=== PATIENT | female | born 1940 | race Caucasian/White ===

== ENCOUNTER 2021-10-30 14:45 | Inpatient (IN) ==
[2021-10-30] MEDS ORDERED: Acetaminophen 325 MG TABLET PO PRN (18:20)
[2021-10-30] MEDS ORDERED: D5% in Water 1,000 ML IVC PRN (18:31)
[2021-10-30] MEDS ORDERED: *HR* Dextrose 50 % in Water (Syg) 50 ML SYRINGE IVP PRN (18:31)
[2021-10-30] MEDS ORDERED: Dextrose 4 GM Chewable Tablets PO PRN ×2 (18:31)
[2021-10-30] MEDS ORDERED: *HR* LORazepam 0.5 MG TABLET PO PRN (18:32)
[2021-10-30] MEDS ORDERED: MethylPREDNISolone 40 MG/ML VIAL IVP SCH ×2 (19:00→21:00)
[2021-10-30] MEDS: QUEtiapine Fumarate 25 MG TABLET PO SCH (20:32)
[2021-10-30] MEDS: Insulin LISPRO 300 UNITS/3 ML VIAL SUBQ SCH (20:33)
[2021-10-30] MEDS: Gabapentin 100 MG CAPSULE PO SCH (20:33)
[2021-10-30] MEDS: Budesonide/Formoterol 160/4.5 1 PUFF INH IH SCH (21:47)
[2021-10-30] MEDS: Famotidine 20 MG TABLET PO SCH (21:51)
[2021-10-30 23:09] LABS: Bilirubin,Urine Negative (Negative); Blood,Urine Negative (Negative); Clarity,Urine Slightly Cloudy (Clear); Glucose,Urine (UA) 100 mg/dL (Normal); Ketones,Urine Negative (Negative); Leukocyte Esterase,Urine Negative (Negative); Nitrite,Urine Negative (Negative); Protein,Urine 30 mg/dL (Neg-Trace); Specific Gravity,Urine 1.015 (1.010-1.025); Urobilinogen,Urine Normal (Normal)
[2021-10-30 23:13] LABS: Color,Urine Yellow (Yellow)
[2021-10-30 23:14] LABS: Amorphous Sediment,Urine Few per hpf (None-Few); Squamous Epithelial Cell,Urine Few per hpf (None-Few)
[2021-10-30] MEDS ORDERED: Ipratropium/Albuterol Neb 3 ML IH ONE (23:40)
[2021-10-31 00:14] LABS: ABG Base Excess 6 mEq/L (-2 to 3); ABG HCO3 32 mEq/L (21-27); ABG Oxygen Saturation 99 % (95-98); ABG PCO2 54 mmHg (35-45); ABG PH 7.38 pH Units (7.32-7.45); ABG PO2 156 mmHg (85-104); ABG TCO2 34 mEq/L (20-26)
[2021-10-31] MEDS ORDERED: methylPREDNISolone 125 MG/2 ML VIAL IVP ONE (00:14)
[2021-10-31] MEDS: Ipratropium/Albuterol Neb 3 ML IH SCH ×7 (00:20→23:54)
[2021-10-31 03:00] LABS: Adenovirus Not Detected (Not Detect); Bordetella Pertussis Not Detected (Not Detect); Coronavirus 229E Not Detected (Not Detect); Coronavirus HKU1 Not Detected (Not Detect); Coronavirus NL63 Not Detected (Not Detect); Coronavirus OC43 Not Detected (Not Detect); Human Metapneumovirus DETECTED (Not Detect); Human Rhinovirus/Enterovirus Not Detected (Not Detect); Influenza A Subtype 2009 H1 Not Detected (Not Detect); Influenza B Not Detected (Not Detect); Parainfluenza Virus 1 Not Detected (Not Detect); Parainfluenza Virus 2 Not Detected (Not Detect); Parainfluenza Virus 3 Not Detected (Not Detect); Parainfluenza Virus 4 Not Detected (Not Detect); Respiratory Syncytial Virus Not Detected (Not Detect); SARS-CoV-2 Not Detected (Not Detect)
[2021-10-31 03:01] LABS: Chlamydophila pneumoniae Not Detected (Not Detect); Mycoplasma pneumoniae Not Detected (Not Detect)
[2021-10-31 04:56] LABS: Basophils % 0.3 %; Hematocrit 37.6 % (35.3-44.9); Hemoglobin 11.8 g/dL (11.5-15.4); Immature Granulocytes % 0.9 % (0-4); Lymphocytes # 0.6 K/mcL (0.6-4.6); Lymphocytes % 6.3 %; Mean Corpuscular HGB Conc 31.4 g/dL (31.6-35.5); Mean Corpuscular Volume 89.1 fL (83.0-100.0); Mean Platelet Volume 9.8 fL (9.4-12.4); Monocytes # 0.1 K/mcL (0.0-1.3); Monocytes % 0.8 %; Neutrophils # 8.8 K/mcL (1.6-8.9); Platelet Count 331 K/mcL (140-400); Red Blood Count 4.22 M/mcL (3.82-4.97); Red Cell Distribution Width 14.1 % (11.5-14.5); Segmented Neutrophils % 91.7 %; White Blood Count 9.6 K/mcL (4.3-11.1)
[2021-10-31 04:57] LABS: Prothrombin Time 11.5 Seconds (9.4-12.1)
[2021-10-31 05:00] LABS: Activated Partial Thrombo Time 26.6 Seconds (26.0-36.0)
[2021-10-31] MEDS: Levothyroxine 25 MCG TABLET PO SCH (05:32)
[2021-10-31] MEDS: *HR* Enoxaparin 40 MG/0.4 ML SYRINGE SQ SCH (05:32)
[2021-10-31 05:59] LABS: Alanine Aminotransferase 13 Units/L (7-52); Albumin 3.2 g/dL (3.5-5.7); Alkaline Phosphatase 62 Units/L (34-104); Aspartate Amino Transferase 16 Units/L (13-39); BUN/Creatinine Ratio 22 (6-26); Bilirubin,Total 0.5 mg/dL (0.3-1.0); Blood Urea Nitrogen 20 mg/dL (8-23); Calcium 8.8 mg/dL (8.6-10.3); Carbon Dioxide 34 mEq/L (23-29); Chloride 92 mEq/L (98-107); Globulin 3.1 g/dL (2.4-3.5); Glucose 313 mg/dL (70-105); Magnesium 1.8 mg/dL (1.6-2.6); Osmolality,Calculated 291 (280-300); Sodium 133 mEq/L (136-145); Thyroid Stimulating Hormone 1.422 mcIU/mL (0.340-5.600); Total Protein 6.3 g/dL (6.4-8.9); eGFR For African Americans > 60 (> 60); eGFR For Non-African Americans > 60 (> 60)
[2021-10-31] MEDS: Budesonide/Formoterol 160/4.5 1 PUFF INH IH SCH ×2 (08:05→20:15)
[2021-10-31] MEDS ORDERED: Loratadine 10 MG TABLET PO SCH (09:00)
[2021-10-31] MEDS ORDERED: amLODIPine 5 MG TABLET PO SCH (09:00)
[2021-10-31] MEDS: Cholecalciferol (D-3) 1,000 UNIT (25MCG) TABLET PO SCH (09:29)
[2021-10-31] MEDS: Chlorhexidine Rinse 15 ML MOUTHWASH MM SCH ×2 (09:29→21:04)
[2021-10-31] MEDS: FLUoxetine 20 MG CAPSULE PO SCH (09:29)
[2021-10-31] MEDS: Thiamine (B-1) 100 MG TABLET PO SCH (09:30)
[2021-10-31] MEDS: cefTRIAXone 1,000 MG in 0.9 % Sodium Chloride 10 ML IVP SCH (09:30)
[2021-10-31] MEDS: MethylPREDNISolone 40 MG/ML VIAL IVP SCH ×3 (09:30→23:51)
[2021-10-31] MEDS: Gabapentin 100 MG CAPSULE PO SCH ×2 (09:31→21:02)
[2021-10-31] MEDS: lisinopriL 20 MG TABLET PO SCH (09:31)
[2021-10-31] MEDS: Famotidine 20 MG TABLET PO SCH ×2 (09:31→21:03)
[2021-10-31] MEDS: calcitrioL 0.25 MCG CAPSULE PO SCH (09:31)
[2021-10-31] MEDS: Cyanocobalamin (B-12) 1,000 MCG TABLET PO SCH (09:31)
[2021-10-31] MEDS: Insulin LISPRO 300 UNITS/3 ML VIAL SUBQ SCH ×4 (09:32→21:05)
[2021-10-31 12:24] LABS: Estimated Average Glucose 148 mg/dl; Hemoglobin A1C 6.8 %
[2021-10-31] MEDS: QUEtiapine Fumarate 25 MG TABLET PO SCH (21:00)
[2021-10-31] MEDS: Insulin DETEMIR 100 UNIT/ML X5UNITS SUBQ SCH (21:05)
[2021-11-01] MEDS: Ipratropium/Albuterol Neb 3 ML IH SCH ×6 (04:17→23:01)
[2021-11-01 04:31] LABS: Hematocrit 33.7 % (35.3-44.9); Mean Corpuscular HGB Conc 32.6 g/dL (31.6-35.5); Mean Corpuscular Hemoglobin 28.5 pg (28.0-33.3); Mean Corpuscular Volume 87.3 fL (83.0-100.0); Platelet Count 325 K/mcL (140-400); Red Blood Count 3.86 M/mcL (3.82-4.97); White Blood Count 14.5 K/mcL (4.3-11.1)
[2021-11-01 04:48] LABS: Alanine Aminotransferase 11 Units/L (7-52); Alkaline Phosphatase 56 Units/L (34-104); Aspartate Amino Transferase 9 Units/L (13-39); BUN/Creatinine Ratio 24 (6-26); Bilirubin,Total 0.4 mg/dL (0.3-1.0); Blood Urea Nitrogen 25 mg/dL (8-23); Calcium 8.6 mg/dL (8.6-10.3); Carbon Dioxide 38 mEq/L (23-29); Chloride 93 mEq/L (98-107); Globulin 2.9 g/dL (2.4-3.5); Glucose 343 mg/dL (70-105); Magnesium 2.1 mg/dL (1.6-2.6); Osmolality,Calculated 296 (280-300); Sodium 134 mEq/L (136-145); Total Protein 5.9 g/dL (6.4-8.9); eGFR For African Americans > 60 (> 60); eGFR For Non-African Americans 51 (> 60)
[2021-11-01] MEDS: Levothyroxine 25 MCG TABLET PO SCH (05:21)
[2021-11-01] MEDS: *HR* Enoxaparin 40 MG/0.4 ML SYRINGE SQ SCH (05:22)
[2021-11-01] MEDS: Budesonide/Formoterol 160/4.5 1 PUFF INH IH SCH ×2 (07:50→19:57)
[2021-11-01] MEDS: cefTRIAXone 1,000 MG in 0.9 % Sodium Chloride 10 ML IVP SCH (08:24)
[2021-11-01] MEDS: MethylPREDNISolone 40 MG/ML VIAL IVP SCH ×2 (08:24→17:24)
[2021-11-01] MEDS: Insulin LISPRO 300 UNITS/3 ML VIAL SUBQ SCH ×4 (08:26→20:24)
[2021-11-01] MEDS: Insulin DETEMIR 100 UNIT/ML X5UNITS SUBQ SCH ×2 (08:27→20:27)
[2021-11-01] MEDS: Cyanocobalamin (B-12) 1,000 MCG TABLET PO SCH (08:31)
[2021-11-01] MEDS: Chlorhexidine Rinse 15 ML MOUTHWASH MM SCH ×2 (08:31→20:18)
[2021-11-01] MEDS: FLUoxetine 20 MG CAPSULE PO SCH (08:31)
[2021-11-01] MEDS: Gabapentin 100 MG CAPSULE PO SCH ×2 (08:31→20:19)
[2021-11-01] MEDS: Famotidine 20 MG TABLET PO SCH (08:31)
[2021-11-01] MEDS: Cholecalciferol (D-3) 1,000 UNIT (25MCG) TABLET PO SCH (08:31)
[2021-11-01] MEDS: calcitrioL 0.25 MCG CAPSULE PO SCH (08:31)
[2021-11-01] MEDS: Thiamine (B-1) 100 MG TABLET PO SCH (08:32)
[2021-11-01] MEDS: lisinopriL 20 MG TABLET PO SCH (08:32)
[2021-11-01] MEDS ORDERED: hydrALAZINE 10 MG TABLET PO PRN (17:09)
[2021-11-01] MEDS: hydrALAZINE 25 MG TABLET PO SCH (20:18)
[2021-11-01] MEDS: QUEtiapine Fumarate 25 MG TABLET PO SCH (20:19)
[2021-11-02] MEDS ORDERED: hydrALAZINE 25 MG TABLET PO SCH
[2021-11-02] MEDS: Ipratropium/Albuterol Neb 3 ML IH SCH ×5 (04:06→20:45)
[2021-11-02] MEDS: Levothyroxine 25 MCG TABLET PO SCH (04:34)
[2021-11-02] MEDS: hydrALAZINE 25 MG TABLET PO SCH ×3 (04:34→21:17)
[2021-11-02] MEDS: *HR* Enoxaparin 40 MG/0.4 ML SYRINGE SQ SCH (04:35)
[2021-11-02] MEDS: MethylPREDNISolone 40 MG/ML VIAL IVP SCH ×2 (04:37→17:04)
[2021-11-02] MEDS: Budesonide/Formoterol 160/4.5 1 PUFF INH IH SCH ×2 (07:58→20:45)
[2021-11-02] MEDS: Chlorhexidine Rinse 15 ML MOUTHWASH MM SCH ×2 (08:11→21:19)
[2021-11-02] MEDS: lisinopriL 20 MG TABLET PO SCH (08:11)
[2021-11-02] MEDS: Cholecalciferol (D-3) 1,000 UNIT (25MCG) TABLET PO SCH (08:11)
[2021-11-02] MEDS: FLUoxetine 20 MG CAPSULE PO SCH (08:12)
[2021-11-02] MEDS: calcitrioL 0.25 MCG CAPSULE PO SCH (08:12)
[2021-11-02] MEDS: Gabapentin 100 MG CAPSULE PO SCH ×2 (08:12→21:16)
[2021-11-02] MEDS: Cyanocobalamin (B-12) 1,000 MCG TABLET PO SCH (08:12)
[2021-11-02] MEDS: cefTRIAXone 1,000 MG in 0.9 % Sodium Chloride 10 ML IVP SCH (08:12)
[2021-11-02] MEDS: Insulin DETEMIR 100 UNIT/ML X5UNITS SUBQ SCH ×2 (08:12→21:20)
[2021-11-02] MEDS: Thiamine (B-1) 100 MG TABLET PO SCH (08:12)
[2021-11-02] MEDS: Insulin LISPRO 300 UNITS/3 ML VIAL SUBQ SCH ×4 (08:14→21:20)
[2021-11-02] MEDS: Famotidine 20 MG TABLET PO SCH (11:41)
[2021-11-02] MEDS: MOM Conc 10 ML UD.LIQ PO PRN (13:15)
[2021-11-02] MEDS: QUEtiapine Fumarate 25 MG TABLET PO SCH (21:16)
[2021-11-03] MEDS: Ipratropium/Albuterol Neb 3 ML IH SCH ×6 (00:33→20:45)
[2021-11-03] MEDS: hydrALAZINE 25 MG TABLET PO SCH ×3 (04:29→17:19)
[2021-11-03] MEDS: Levothyroxine 25 MCG TABLET PO SCH (04:29)
[2021-11-03] MEDS: MethylPREDNISolone 40 MG/ML VIAL IVP SCH ×2 (04:30→17:11)
[2021-11-03] MEDS: *HR* Enoxaparin 40 MG/0.4 ML SYRINGE SQ SCH (04:31)
[2021-11-03] MEDS: Cholecalciferol (D-3) 1,000 UNIT (25MCG) TABLET PO SCH (09:14)
[2021-11-03] MEDS: Thiamine (B-1) 100 MG TABLET PO SCH (09:14)
[2021-11-03] MEDS: lisinopriL 20 MG TABLET PO SCH (09:14)
[2021-11-03] MEDS: Gabapentin 100 MG CAPSULE PO SCH ×2 (09:14→20:22)
[2021-11-03] MEDS: calcitrioL 0.25 MCG CAPSULE PO SCH (09:14)
[2021-11-03] MEDS: Chlorhexidine Rinse 15 ML MOUTHWASH MM SCH ×2 (09:15→20:27)
[2021-11-03] MEDS: Famotidine 20 MG TABLET PO SCH (09:15)
[2021-11-03] MEDS: FLUoxetine 20 MG CAPSULE PO SCH (09:15)
[2021-11-03] MEDS: cefTRIAXone 1,000 MG in 0.9 % Sodium Chloride 10 ML IVP SCH (09:16)
[2021-11-03] MEDS: Cyanocobalamin (B-12) 1,000 MCG TABLET PO SCH (09:17)
[2021-11-03] MEDS: Insulin LISPRO 300 UNITS/3 ML VIAL SUBQ SCH ×4 (09:18→20:25)
[2021-11-03] MEDS: Insulin DETEMIR 100 UNIT/ML X5UNITS SUBQ SCH ×2 (09:28→20:26)
[2021-11-03] MEDS: Budesonide/Formoterol 160/4.5 1 PUFF INH IH SCH ×2 (11:10→20:45)
[2021-11-03] MEDS: MOM Conc 10 ML UD.LIQ PO PRN (17:19)
[2021-11-03] MEDS: QUEtiapine Fumarate 25 MG TABLET PO SCH (20:21)
[2021-11-03] MEDS: hydrALAZINE 10 MG TABLET PO PRN (20:22)
[2021-11-03] MEDS: Sennosides/Docusate Sodium TABLET PO SCH (20:22)
[2021-11-03] MEDS ORDERED: polyethylene glycoL 3350 17 GM POWD.PACK PO SCH (21:00)
[2021-11-04] MEDS: Ipratropium/Albuterol Neb 3 ML IH SCH ×5 (00:47→15:36)
[2021-11-04] MEDS: hydrALAZINE 10 MG TABLET PO PRN (02:17)
[2021-11-04] MEDS: Levothyroxine 25 MCG TABLET PO SCH (04:43)
[2021-11-04] MEDS: hydrALAZINE 25 MG TABLET PO SCH ×3 (04:43→16:28)
[2021-11-04] MEDS: *HR* Enoxaparin 40 MG/0.4 ML SYRINGE SQ SCH (04:43)
[2021-11-04] MEDS: MethylPREDNISolone 40 MG/ML VIAL IVP SCH (04:44)
[2021-11-04 05:40] LABS: Hematocrit 35.1 % (35.3-44.9); Hemoglobin 10.9 g/dL (11.5-15.4); Mean Corpuscular HGB Conc 31.1 g/dL (31.6-35.5); Mean Corpuscular Hemoglobin 27.8 pg (28.0-33.3); Mean Corpuscular Volume 89.5 fL (83.0-100.0); Mean Platelet Volume 9.9 fL (9.4-12.4); Platelet Count 351 K/mcL (140-400); Red Blood Count 3.92 M/mcL (3.82-4.97); Red Cell Distribution Width 14.4 % (11.5-14.5); White Blood Count 10.6 K/mcL (4.3-11.1)
[2021-11-04 06:40] LABS: Albumin/Globulin Ratio 1.3 (1.1-2.2); Bilirubin,Total 0.4 mg/dL (0.3-1.0); Calcium 8.7 mg/dL (8.6-10.3); Globulin 2.4 g/dL (2.4-3.5); Magnesium 2.1 mg/dL (1.6-2.6); Potassium 4.6 mEq/L (3.5-5.1); Total Protein 5.4 g/dL (6.4-8.9)
[2021-11-04] MEDS: Budesonide/Formoterol 160/4.5 1 PUFF INH IH SCH (07:56)
[2021-11-04] MEDS: calcitrioL 0.25 MCG CAPSULE PO SCH (08:05)
[2021-11-04] MEDS: Thiamine (B-1) 100 MG TABLET PO SCH (08:05)
[2021-11-04] MEDS: cefTRIAXone 1,000 MG in 0.9 % Sodium Chloride 10 ML IVP SCH (08:05)
[2021-11-04] MEDS: Cholecalciferol (D-3) 1,000 UNIT (25MCG) TABLET PO SCH (08:05)
[2021-11-04] MEDS: Chlorhexidine Rinse 15 ML MOUTHWASH MM SCH (08:05)
[2021-11-04] MEDS: Gabapentin 100 MG CAPSULE PO SCH (08:05)
[2021-11-04] MEDS: lisinopriL 20 MG TABLET PO SCH (08:05)
[2021-11-04] MEDS: Sennosides/Docusate Sodium TABLET PO SCH (08:06)
[2021-11-04] MEDS: Famotidine 20 MG TABLET PO SCH (08:06)
[2021-11-04] MEDS: Cyanocobalamin (B-12) 1,000 MCG TABLET PO SCH (08:06)
[2021-11-04] MEDS: FLUoxetine 20 MG CAPSULE PO SCH (08:06)
[2021-11-04] MEDS: Insulin LISPRO 300 UNITS/3 ML VIAL SUBQ SCH ×3 (08:07→16:27)
[2021-11-04] MEDS: Insulin DETEMIR 100 UNIT/ML X5UNITS SUBQ SCH (08:20)
[2021-11-04] MEDS ORDERED: acetaZOLAMIDE 250 MG TABLET PO SCH (09:00)
[2021-11-04 11:04] VITALS: BP 181/76; PULSE 57; TEMP 98.4
[2021-11-04 15:48] VITALS: RESP 16; O2SAT 99
[2021-11-05] MEDS ORDERED: predniSONE 20 MG TABLET PO SCH (09:00)
== END 2021-11-04 16:42 | disposition other institution (70) | DRG 193 ==
LOC: INPGRE
PROVIDERS: ADMIT Family Medicine; ATTEND Family Medicine

== ENCOUNTER 2021-11-04 15:35 | Inpatient (IN) ==
[2021-11-04] MEDS ORDERED: *HR* LORazepam 0.5 MG TABLET PO PRN (16:44)
[2021-11-04] MEDS ORDERED: Dextrose 4 GM Chewable Tablets PO PRN ×2 (16:50)
[2021-11-04] MEDS ORDERED: *HR* Dextrose 50 % in Water (Syg) 50 ML SYRINGE IVP PRN (16:50)
[2021-11-04] MEDS ORDERED: D5% in Water 1,000 ML IVC PRN (16:50)
[2021-11-04] MEDS: Budesonide/Formoterol 160/4.5 1 PUFF INH IH SCH (20:01)
[2021-11-04] MEDS: acetaZOLAMIDE 250 MG TABLET PO SCH (20:15)
[2021-11-04] MEDS: QUEtiapine Fumarate 25 MG TABLET PO SCH (20:15)
[2021-11-04] MEDS: Gabapentin 100 MG CAPSULE PO SCH (20:15)
[2021-11-04] MEDS: Cefdinir 300 MG CAPSULE PO SCH (20:15)
[2021-11-04] MEDS: Famotidine 20 MG TABLET PO SCH (20:15)
[2021-11-04] MEDS ORDERED: Insulin DETEMIR 100 UNIT/ML per UNIT SUBQ ONE (21:00)
[2021-11-05 04:51] LABS: Basophils # 0.1 K/mcL (0.0-0.2); Basophils % 0.6 %; Eosinophils % 0.3 %; Hemoglobin 11.4 g/dL (11.5-15.4); Immature Granulocytes % 5.7 % (0-4); Lymphocytes # 3.5 K/mcL (0.6-4.6); Lymphocytes % 29.6 %; Mean Corpuscular HGB Conc 30.8 g/dL (31.6-35.5); Mean Corpuscular Hemoglobin 27.8 pg (28.0-33.3); Mean Corpuscular Volume 90.2 fL (83.0-100.0); Mean Platelet Volume 10.2 fL (9.4-12.4); Monocytes # 1.2 K/mcL (0.0-1.3); Monocytes % 10.3 %; Neutrophils # 6.3 K/mcL (1.6-8.9); Platelet Count 314 K/mcL (140-400); Red Cell Distribution Width 14.4 % (11.5-14.5); Segmented Neutrophils % 53.5 %; White Blood Count 11.8 K/mcL (4.3-11.1)
[2021-11-05 05:05] LABS: Calcium 8.5 mg/dL (8.6-10.3); Potassium 4.5 mEq/L (3.5-5.1)
[2021-11-05 05:08] LABS: Platelet Estimate Normal (Normal)
[2021-11-05] MEDS: Levothyroxine 25 MCG TABLET PO SCH (05:12)
[2021-11-05] MEDS: *HR* Enoxaparin 40 MG/0.4 ML SYRINGE SQ SCH (05:12)
[2021-11-05] MEDS ORDERED: Insulin LISPRO 300 UNITS/3 ML VIAL SUBQ SCH (07:30)
[2021-11-05] MEDS: Budesonide/Formoterol 160/4.5 1 PUFF INH IH SCH ×2 (07:52→18:46)
[2021-11-05] MEDS: Thiamine (B-1) 100 MG TABLET PO SCH (08:25)
[2021-11-05] MEDS: acetaZOLAMIDE 250 MG TABLET PO SCH (08:25)
[2021-11-05] MEDS: Cefdinir 300 MG CAPSULE PO SCH ×2 (08:25→22:36)
[2021-11-05] MEDS: Cholecalciferol (D-3) 1,000 UNIT (25MCG) TABLET PO SCH (08:26)
[2021-11-05] MEDS: Furosemide 20 MG TABLET PO SCH (08:26)
[2021-11-05] MEDS: FLUoxetine 20 MG CAPSULE PO SCH (08:26)
[2021-11-05] MEDS: calcitrioL 0.25 MCG CAPSULE PO SCH (08:26)
[2021-11-05] MEDS: lisinopriL 20 MG TABLET PO SCH (08:27)
[2021-11-05] MEDS: predniSONE 20 MG TABLET PO SCH (08:27)
[2021-11-05] MEDS: Famotidine 20 MG TABLET PO SCH ×2 (08:27→22:29)
[2021-11-05] MEDS: Gabapentin 100 MG CAPSULE PO SCH ×2 (08:27→22:29)
[2021-11-05] MEDS: Loratadine 10 MG TABLET PO SCH (08:27)
[2021-11-05] MEDS: Cyanocobalamin (B-12) 1,000 MCG TABLET PO SCH (08:28)
[2021-11-05] MEDS ORDERED: amLODIPine 5 MG TABLET PO SCH (09:00)
[2021-11-05] MEDS ORDERED: Insulin DETEMIR 100 UNIT/ML X5UNITS SUBQ SCH ×2 (09:00→21:00)
[2021-11-05] MEDS ORDERED: hydrALAZINE 25 MG TABLET PO PRN (09:39)
[2021-11-05] MEDS: Insulin LISPRO 300 UNITS/3 ML VIAL SUBQ SCH ×2 (12:21→18:28)
[2021-11-05] MEDS: *HR* HYDROcodone/Acet 5/325 mg TABLET PO PRN ×2 (14:18→22:34)
[2021-11-05] MEDS: Sennosides 8.6 MG TABLET PO SCH ×2 (14:20→22:32)
[2021-11-05] MEDS ORDERED: Insulin DETEMIR 100 UNIT/ML per UNIT SUBQ ONE (21:00)
[2021-11-05] MEDS: QUEtiapine Fumarate 25 MG TABLET PO SCH (22:28)
[2021-11-06] MEDS: *HR* Enoxaparin 40 MG/0.4 ML SYRINGE SQ SCH (04:41)
[2021-11-06] MEDS: Levothyroxine 25 MCG TABLET PO SCH (04:43)
[2021-11-06 04:55] LABS: Hematocrit 34.7 % (35.3-44.9); Hemoglobin 11.4 g/dL (11.5-15.4); Mean Corpuscular HGB Conc 32.9 g/dL (31.6-35.5); Mean Corpuscular Hemoglobin 28.8 pg (28.0-33.3); Mean Corpuscular Volume 87.6 fL (83.0-100.0); Mean Platelet Volume 10.3 fL (9.4-12.4); Platelet Count 314 K/mcL (140-400); Red Blood Count 3.96 M/mcL (3.82-4.97); Red Cell Distribution Width 14.5 % (11.5-14.5); White Blood Count 15.1 K/mcL (4.3-11.1)
[2021-11-06 05:14] LABS: Albumin 2.8 g/dL (3.5-5.7); Albumin/Globulin Ratio 1.3 (1.1-2.2); Bilirubin,Total 0.3 mg/dL (0.3-1.0); Calcium 8.5 mg/dL (8.6-10.3); Globulin 2.2 g/dL (2.4-3.5)
[2021-11-06 08:00] VITALS: BP 177/80; PULSE 74; RESP 18; TEMP 97.4; O2SAT 99
[2021-11-06] MEDS: Cholecalciferol (D-3) 1,000 UNIT (25MCG) TABLET PO SCH (08:45)
[2021-11-06] MEDS: Gabapentin 100 MG CAPSULE PO SCH (08:45)
[2021-11-06] MEDS: Thiamine (B-1) 100 MG TABLET PO SCH (08:45)
[2021-11-06] MEDS: lisinopriL 20 MG TABLET PO SCH (08:45)
[2021-11-06] MEDS: Sennosides 8.6 MG TABLET PO SCH (08:45)
[2021-11-06] MEDS: predniSONE 20 MG TABLET PO SCH (08:45)
[2021-11-06] MEDS: calcitrioL 0.25 MCG CAPSULE PO SCH (08:46)
[2021-11-06] MEDS: FLUoxetine 20 MG CAPSULE PO SCH (08:46)
[2021-11-06] MEDS: Loratadine 10 MG TABLET PO SCH (08:46)
[2021-11-06] MEDS: Cefdinir 300 MG CAPSULE PO SCH (08:46)
[2021-11-06] MEDS: Furosemide 20 MG TABLET PO SCH (08:46)
[2021-11-06] MEDS: *HR* HYDROcodone/Acet 5/325 mg TABLET PO PRN (08:47)
[2021-11-06] MEDS: Famotidine 20 MG TABLET PO SCH (08:47)
[2021-11-06] MEDS: Cyanocobalamin (B-12) 1,000 MCG TABLET PO SCH (08:47)
[2021-11-06] MEDS: Insulin LISPRO 300 UNITS/3 ML VIAL SUBQ SCH ×2 (08:48→13:38)
[2021-11-06] MEDS ORDERED: amLODIPine 5 MG TABLET PO SCH (09:00)
[2021-11-06] MEDS ORDERED: Insulin DETEMIR 100 UNIT/ML X5UNITS SUBQ SCH (09:00)
[2021-11-06] MEDS ORDERED: acetaZOLAMIDE 250 MG TABLET PO SCH (09:00)
[2021-11-06] MEDS: Budesonide/Formoterol 160/4.5 1 PUFF INH IH SCH (10:10)
[2021-11-07] MEDS ORDERED: Famotidine 20 MG TABLET PO SCH (09:00)
== END 2021-11-06 14:15 | disposition short-term general hospital (02) | DRG 637 ==
LOC: INPGRE 16:43
PROVIDERS: ADMIT Family Medicine; ATTEND Family Medicine

== ENCOUNTER 2021-11-11 12:29 | Inpatient (IN) ==
[2021-11-11] MEDS ORDERED: *HR* LORazepam 0.5 MG TABLET PO PRN (13:51)
[2021-11-11] MEDS ORDERED: Dextrose 4 GM Chewable Tablets PO PRN ×2 (18:45)
[2021-11-11] MEDS ORDERED: D5% in Water 1,000 ML IVC PRN (18:45)
[2021-11-11] MEDS ORDERED: *HR* Dextrose 50 % in Water (Syg) 50 ML SYRINGE IVP PRN (18:45)
[2021-11-11] MEDS: QUEtiapine Fumarate 25 MG TABLET PO SCH (20:36)
[2021-11-11] MEDS: Gabapentin 100 MG CAPSULE PO SCH (20:38)
[2021-11-11] MEDS: Insulin LISPRO 300 UNITS/3 ML VIAL SUBQ SCH (20:38)
[2021-11-11] MEDS: Budesonide/Formoterol 160/4.5 1 PUFF INH IH SCH (20:48)
[2021-11-12 06:03] LABS: Basophils % 0.2 %; Eosinophils % 0.1 %; Hematocrit 32.1 % (35.3-44.9); Hemoglobin 10.3 g/dL (11.5-15.4); Immature Granulocytes % 1.4 % (0-4); Lymphocytes # 2.1 K/mcL (0.6-4.6); Lymphocytes % 20.6 %; Mean Corpuscular HGB Conc 32.1 g/dL (31.6-35.5); Mean Corpuscular Volume 90.4 fL (83.0-100.0); Mean Platelet Volume 10.3 fL (9.4-12.4); Monocytes # 0.7 K/mcL (0.0-1.3); Monocytes % 6.7 %; Neutrophils # 7.1 K/mcL (1.6-8.9); Platelet Count 317 K/mcL (140-400); Red Blood Count 3.55 M/mcL (3.82-4.97); Red Cell Distribution Width 14.6 % (11.5-14.5)
[2021-11-12] MEDS: Levothyroxine 25 MCG TABLET PO SCH (06:09)
[2021-11-12] MEDS: *HR* Enoxaparin 40 MG/0.4 ML SYRINGE SQ SCH (06:09)
[2021-11-12 06:21] LABS: BUN/Creatinine Ratio 17 (6-26); Blood Urea Nitrogen 17 mg/dL (8-23); Calcium 8.2 mg/dL (8.6-10.3); Carbon Dioxide 31 mEq/L (23-29); Chloride 101 mEq/L (98-107); Glucose 224 mg/dL (70-105); Osmolality,Calculated 289 (280-300); Potassium 3.6 mEq/L (3.5-5.1); Sodium 135 mEq/L (136-145); eGFR For African Americans > 60 (> 60); eGFR For Non-African Americans 52 (> 60)
[2021-11-12] MEDS: Budesonide/Formoterol 160/4.5 1 PUFF INH IH SCH ×2 (07:46→20:42)
[2021-11-12] MEDS ORDERED: amLODIPine 5 MG TABLET PO SCH (09:00)
[2021-11-12] MEDS: Cholecalciferol (D-3) 1,000 UNIT (25MCG) TABLET PO SCH (09:00)
[2021-11-12] MEDS ORDERED: Furosemide 20 MG TABLET PO SCH (09:00)
[2021-11-12] MEDS: lisinopriL 20 MG TABLET PO SCH (09:00)
[2021-11-12] MEDS: Gabapentin 100 MG CAPSULE PO SCH ×2 (09:00→20:37)
[2021-11-12] MEDS: Cyanocobalamin (B-12) 1,000 MCG TABLET PO SCH (09:00)
[2021-11-12] MEDS: Thiamine (B-1) 100 MG TABLET PO SCH (09:02)
[2021-11-12] MEDS: Loratadine 10 MG TABLET PO SCH (09:03)
[2021-11-12] MEDS: Insulin LISPRO 300 UNITS/3 ML VIAL SUBQ SCH ×4 (09:03→20:21)
[2021-11-12] MEDS: FLUoxetine 20 MG CAPSULE PO SCH (09:03)
[2021-11-12] MEDS: calcitrioL 0.25 MCG CAPSULE PO SCH (09:03)
[2021-11-12] MEDS ORDERED: hydrALAZINE 10 MG TABLET PO PRN ×2 (09:49→12:52)
[2021-11-12] MEDS ORDERED: amLODIPine 5 MG TABLET PO ONE ×2 (12:30→12:51)
[2021-11-12] MEDS: QUEtiapine Fumarate 25 MG TABLET PO SCH (20:36)
[2021-11-13] MEDS: *HR* Enoxaparin 40 MG/0.4 ML SYRINGE SQ SCH (04:52)
[2021-11-13] MEDS: Levothyroxine 25 MCG TABLET PO SCH (04:52)
[2021-11-13] MEDS: Budesonide/Formoterol 160/4.5 1 PUFF INH IH SCH ×2 (07:35→19:54)
[2021-11-13] MEDS: FLUoxetine 20 MG CAPSULE PO SCH (07:49)
[2021-11-13] MEDS: Cholecalciferol (D-3) 1,000 UNIT (25MCG) TABLET PO SCH (07:49)
[2021-11-13] MEDS: calcitrioL 0.25 MCG CAPSULE PO SCH (07:49)
[2021-11-13] MEDS: Gabapentin 100 MG CAPSULE PO SCH ×2 (07:49→19:31)
[2021-11-13] MEDS: Thiamine (B-1) 100 MG TABLET PO SCH (07:49)
[2021-11-13] MEDS: lisinopriL 20 MG TABLET PO SCH (07:50)
[2021-11-13] MEDS: Loratadine 10 MG TABLET PO SCH (07:50)
[2021-11-13] MEDS: Cyanocobalamin (B-12) 1,000 MCG TABLET PO SCH (07:51)
[2021-11-13] MEDS: Insulin LISPRO 300 UNITS/3 ML VIAL SUBQ SCH ×4 (07:55→20:21)
[2021-11-13] MEDS ORDERED: amLODIPine 5 MG TABLET PO SCH (09:00)
[2021-11-13] MEDS: Acetaminophen 325 MG TABLET PO PRN ×2 (11:40→19:30)
[2021-11-13] MEDS: Furosemide 20 MG TABLET PO SCH (11:40)
[2021-11-13] MEDS: amLODIPine 5 MG TABLET PO SCH (11:40)
[2021-11-13] MEDS: hydrALAZINE 25 MG TABLET PO SCH (15:29)
[2021-11-13] MEDS: QUEtiapine Fumarate 25 MG TABLET PO SCH (19:30)
[2021-11-14] MEDS: Levothyroxine 25 MCG TABLET PO SCH (05:19)
[2021-11-14] MEDS: *HR* Enoxaparin 40 MG/0.4 ML SYRINGE SQ SCH (05:19)
[2021-11-14] MEDS: Acetaminophen 325 MG TABLET PO PRN (05:21)
[2021-11-14 06:01] LABS: Hematocrit 34.2 % (35.3-44.9); Hemoglobin 10.8 g/dL (11.5-15.4); Mean Corpuscular HGB Conc 31.6 g/dL (31.6-35.5); Mean Corpuscular Hemoglobin 28.3 pg (28.0-33.3); Mean Corpuscular Volume 89.8 fL (83.0-100.0); Mean Platelet Volume 10.1 fL (9.4-12.4); Platelet Count 289 K/mcL (140-400); Red Blood Count 3.81 M/mcL (3.82-4.97); Red Cell Distribution Width 15.1 % (11.5-14.5); White Blood Count 6.3 K/mcL (4.3-11.1)
[2021-11-14 06:33] LABS: Alanine Aminotransferase 41 Units/L (7-52); Albumin 2.9 g/dL (3.5-5.7); Albumin/Globulin Ratio 1.4 (1.1-2.2); Alkaline Phosphatase 135 Units/L (34-104); Aspartate Amino Transferase 13 Units/L (13-39); BUN/Creatinine Ratio 12 (6-26); Bilirubin,Total 0.3 mg/dL (0.3-1.0); Blood Urea Nitrogen 12 mg/dL (8-23); Calcium 8.2 mg/dL (8.6-10.3); Carbon Dioxide 30 mEq/L (23-29); Chloride 100 mEq/L (98-107); Globulin 2.1 g/dL (2.4-3.5); Glucose 201 mg/dL (70-105); Magnesium 1.6 mg/dL (1.6-2.6); Osmolality,Calculated 285 (280-300); Potassium 3.3 mEq/L (3.5-5.1); Sodium 135 mEq/L (136-145); eGFR For African Americans > 60 (> 60); eGFR For Non-African Americans 53 (> 60)
[2021-11-14] MEDS: Thiamine (B-1) 100 MG TABLET PO SCH (08:12)
[2021-11-14] MEDS: Cholecalciferol (D-3) 1,000 UNIT (25MCG) TABLET PO SCH (08:12)
[2021-11-14] MEDS: calcitrioL 0.25 MCG CAPSULE PO SCH (08:12)
[2021-11-14] MEDS: amLODIPine 5 MG TABLET PO SCH (08:12)
[2021-11-14] MEDS: lisinopriL 20 MG TABLET PO SCH (08:12)
[2021-11-14] MEDS: Cyanocobalamin (B-12) 1,000 MCG TABLET PO SCH (08:13)
[2021-11-14] MEDS: Furosemide 20 MG TABLET PO SCH (08:13)
[2021-11-14] MEDS: Gabapentin 100 MG CAPSULE PO SCH ×2 (08:13→20:09)
[2021-11-14] MEDS: FLUoxetine 20 MG CAPSULE PO SCH (08:13)
[2021-11-14] MEDS: Insulin LISPRO 300 UNITS/3 ML VIAL SUBQ SCH ×4 (08:14→20:17)
[2021-11-14] MEDS: Loratadine 10 MG TABLET PO SCH (08:14)
[2021-11-14] MEDS: *HR* HYDROcodone/Acet 5/325 mg TABLET PO PRN ×2 (08:17→21:06)
[2021-11-14] MEDS: Budesonide/Formoterol 160/4.5 1 PUFF INH IH SCH ×2 (10:32→19:56)
[2021-11-14] MEDS: hydrALAZINE 25 MG TABLET PO SCH ×2 (17:40→23:35)
[2021-11-14] MEDS: QUEtiapine Fumarate 25 MG TABLET PO SCH (20:10)
[2021-11-15] MEDS: *HR* Enoxaparin 40 MG/0.4 ML SYRINGE SQ SCH (05:38)
[2021-11-15] MEDS: Levothyroxine 25 MCG TABLET PO SCH (05:38)
[2021-11-15] MEDS: Furosemide 20 MG TABLET PO SCH (08:00)
[2021-11-15] MEDS: lisinopriL 20 MG TABLET PO SCH (08:00)
[2021-11-15] MEDS: *HR* HYDROcodone/Acet 5/325 mg TABLET PO PRN ×2 (08:00→21:55)
[2021-11-15] MEDS: hydrALAZINE 25 MG TABLET PO SCH ×3 (08:00→23:39)
[2021-11-15] MEDS: calcitrioL 0.25 MCG CAPSULE PO SCH (08:00)
[2021-11-15] MEDS: Cyanocobalamin (B-12) 1,000 MCG TABLET PO SCH (08:01)
[2021-11-15] MEDS: amLODIPine 5 MG TABLET PO SCH (08:01)
[2021-11-15] MEDS: Loratadine 10 MG TABLET PO SCH (08:01)
[2021-11-15] MEDS: Gabapentin 100 MG CAPSULE PO SCH ×2 (08:01→21:54)
[2021-11-15] MEDS: Thiamine (B-1) 100 MG TABLET PO SCH (08:01)
[2021-11-15] MEDS: FLUoxetine 20 MG CAPSULE PO SCH (08:01)
[2021-11-15] MEDS: Cholecalciferol (D-3) 1,000 UNIT (25MCG) TABLET PO SCH (08:02)
[2021-11-15] MEDS: Insulin LISPRO 300 UNITS/3 ML VIAL SUBQ SCH ×4 (08:02→21:56)
[2021-11-15] MEDS: Budesonide/Formoterol 160/4.5 1 PUFF INH IH SCH ×2 (10:42→20:37)
[2021-11-15] MEDS: QUEtiapine Fumarate 25 MG TABLET PO SCH (21:54)
[2021-11-15] MEDS: Insulin DETEMIR 100 UNIT/ML X5UNITS SUBQ SCH (21:56)
[2021-11-16 04:57] LABS: Hematocrit 33.1 % (35.3-44.9); Hemoglobin 10.3 g/dL (11.5-15.4); Mean Corpuscular HGB Conc 31.1 g/dL (31.6-35.5); Mean Corpuscular Hemoglobin 28.6 pg (28.0-33.3); Mean Corpuscular Volume 91.9 fL (83.0-100.0); Mean Platelet Volume 9.9 fL (9.4-12.4); Platelet Count 288 K/mcL (140-400); Red Cell Distribution Width 15.4 % (11.5-14.5); White Blood Count 6.4 K/mcL (4.3-11.1)
[2021-11-16 05:13] LABS: Alanine Aminotransferase 25 Units/L (7-52); Albumin 2.9 g/dL (3.5-5.7); Albumin/Globulin Ratio 1.4 (1.1-2.2); Alkaline Phosphatase 135 Units/L (34-104); Aspartate Amino Transferase 11 Units/L (13-39); BUN/Creatinine Ratio 11 (6-26); Bilirubin,Total 0.3 mg/dL (0.3-1.0); Blood Urea Nitrogen 11 mg/dL (8-23); Calcium 8.6 mg/dL (8.6-10.3); Carbon Dioxide 36 mEq/L (23-29); Chloride 100 mEq/L (98-107); Globulin 2.1 g/dL (2.4-3.5); Glucose 188 mg/dL (70-105); Magnesium 1.7 mg/dL (1.6-2.6); Osmolality,Calculated 294 (280-300); Potassium 5.1 mEq/L (3.5-5.1); Sodium 140 mEq/L (136-145); eGFR For African Americans > 60 (> 60); eGFR For Non-African Americans 56 (> 60)
[2021-11-16] MEDS: *HR* Enoxaparin 40 MG/0.4 ML SYRINGE SQ SCH (05:52)
[2021-11-16] MEDS: Levothyroxine 25 MCG TABLET PO SCH (05:52)
[2021-11-16] MEDS: Cholecalciferol (D-3) 1,000 UNIT (25MCG) TABLET PO SCH (08:20)
[2021-11-16] MEDS: lisinopriL 20 MG TABLET PO SCH (08:20)
[2021-11-16] MEDS: Thiamine (B-1) 100 MG TABLET PO SCH (08:20)
[2021-11-16] MEDS: calcitrioL 0.25 MCG CAPSULE PO SCH (08:20)
[2021-11-16] MEDS: hydrALAZINE 25 MG TABLET PO SCH ×3 (08:20→23:33)
[2021-11-16] MEDS: Loratadine 10 MG TABLET PO SCH (08:20)
[2021-11-16] MEDS: *HR* HYDROcodone/Acet 5/325 mg TABLET PO PRN ×2 (08:20→20:09)
[2021-11-16] MEDS: amLODIPine 5 MG TABLET PO SCH (08:21)
[2021-11-16] MEDS: Furosemide 20 MG TABLET PO SCH (08:21)
[2021-11-16] MEDS: FLUoxetine 20 MG CAPSULE PO SCH (08:21)
[2021-11-16] MEDS: Insulin LISPRO 300 UNITS/3 ML VIAL SUBQ SCH ×4 (08:21→20:10)
[2021-11-16] MEDS: Cyanocobalamin (B-12) 1,000 MCG TABLET PO SCH (08:22)
[2021-11-16] MEDS: Insulin DETEMIR 100 UNIT/ML X5UNITS SUBQ SCH ×2 (08:26→20:10)
[2021-11-16] MEDS: Gabapentin 100 MG CAPSULE PO SCH ×2 (08:27→20:10)
[2021-11-16 08:55] LABS: Estimated Average Glucose 163 mg/dl; Hemoglobin A1C 7.3 %
[2021-11-16] MEDS: Budesonide/Formoterol 160/4.5 1 PUFF INH IH SCH ×2 (10:26→21:55)
[2021-11-16] MEDS: MOM Conc 10 ML UD.LIQ PO PRN (14:50)
[2021-11-16] MEDS: QUEtiapine Fumarate 25 MG TABLET PO SCH (20:10)
[2021-11-17] MEDS: *HR* HYDROcodone/Acet 5/325 mg TABLET PO PRN ×3 (05:15→19:35)
[2021-11-17] MEDS: *HR* Enoxaparin 40 MG/0.4 ML SYRINGE SQ SCH (05:16)
[2021-11-17] MEDS: Levothyroxine 25 MCG TABLET PO SCH (05:16)
[2021-11-17] MEDS: Insulin LISPRO 300 UNITS/3 ML VIAL SUBQ SCH ×4 (08:08→19:35)
[2021-11-17] MEDS: Loratadine 10 MG TABLET PO SCH (08:20)
[2021-11-17] MEDS: Cholecalciferol (D-3) 1,000 UNIT (25MCG) TABLET PO SCH (08:20)
[2021-11-17] MEDS: Cyanocobalamin (B-12) 1,000 MCG TABLET PO SCH (08:21)
[2021-11-17] MEDS: lisinopriL 20 MG TABLET PO SCH (08:21)
[2021-11-17] MEDS: FLUoxetine 20 MG CAPSULE PO SCH (08:21)
[2021-11-17] MEDS: amLODIPine 5 MG TABLET PO SCH (08:21)
[2021-11-17] MEDS: calcitrioL 0.25 MCG CAPSULE PO SCH (08:21)
[2021-11-17] MEDS: hydrALAZINE 25 MG TABLET PO SCH ×2 (08:21→16:22)
[2021-11-17] MEDS: Furosemide 20 MG TABLET PO SCH (08:21)
[2021-11-17] MEDS: Gabapentin 100 MG CAPSULE PO SCH ×2 (08:21→19:30)
[2021-11-17] MEDS: Thiamine (B-1) 100 MG TABLET PO SCH (08:21)
[2021-11-17] MEDS: Insulin DETEMIR 100 UNIT/ML X5UNITS SUBQ SCH ×2 (08:22→19:36)
[2021-11-17] MEDS: MOM Conc 10 ML UD.LIQ PO PRN (08:27)
[2021-11-17] MEDS: Budesonide/Formoterol 160/4.5 1 PUFF INH IH SCH ×2 (09:28→21:04)
[2021-11-17] MEDS: QUEtiapine Fumarate 25 MG TABLET PO SCH (19:31)
[2021-11-17] MEDS ORDERED: Sennosides/Docusate Sodium TABLET PO PRN (21:09)
[2021-11-18] MEDS: hydrALAZINE 25 MG TABLET PO SCH ×3 (00:40→14:32)
[2021-11-18] MEDS: *HR* Enoxaparin 40 MG/0.4 ML SYRINGE SQ SCH (04:40)
[2021-11-18] MEDS: Levothyroxine 25 MCG TABLET PO SCH (04:41)
[2021-11-18] MEDS: Budesonide/Formoterol 160/4.5 1 PUFF INH IH SCH ×2 (07:34→20:40)
[2021-11-18] MEDS: Insulin LISPRO 300 UNITS/3 ML VIAL SUBQ SCH ×4 (07:49→20:20)
[2021-11-18] MEDS: amLODIPine 5 MG TABLET PO SCH (08:24)
[2021-11-18] MEDS: Insulin DETEMIR 100 UNIT/ML X5UNITS SUBQ SCH ×2 (08:24→20:20)
[2021-11-18] MEDS: lisinopriL 20 MG TABLET PO SCH (08:25)
[2021-11-18] MEDS: Cholecalciferol (D-3) 1,000 UNIT (25MCG) TABLET PO SCH (08:25)
[2021-11-18] MEDS: Gabapentin 100 MG CAPSULE PO SCH ×2 (08:25→20:18)
[2021-11-18] MEDS: calcitrioL 0.25 MCG CAPSULE PO SCH (08:26)
[2021-11-18] MEDS: Loratadine 10 MG TABLET PO SCH (08:26)
[2021-11-18] MEDS: Thiamine (B-1) 100 MG TABLET PO SCH (08:26)
[2021-11-18] MEDS: Furosemide 20 MG TABLET PO SCH (08:26)
[2021-11-18] MEDS: FLUoxetine 20 MG CAPSULE PO SCH (08:26)
[2021-11-18] MEDS: Cyanocobalamin (B-12) 1,000 MCG TABLET PO SCH (08:27)
[2021-11-18 09:35] LABS: Basophils % 0.5 %; Eosinophils # 0.1 K/mcL (0.0-0.6); Eosinophils % 1.8 %; Hemoglobin 11.5 g/dL (11.5-15.4); Immature Granulocytes % 0.6 % (0-4); Lymphocytes # 1.7 K/mcL (0.6-4.6); Lymphocytes % 27.9 %; Mean Corpuscular HGB Conc 31.1 g/dL (31.6-35.5); Mean Corpuscular Hemoglobin 28.6 pg (28.0-33.3); Mean Platelet Volume 9.7 fL (9.4-12.4); Monocytes # 0.4 K/mcL (0.0-1.3); Monocytes % 7.1 %; Neutrophils # 3.9 K/mcL (1.6-8.9); Platelet Count 285 K/mcL (140-400); Red Blood Count 4.02 M/mcL (3.82-4.97); Red Cell Distribution Width 15.3 % (11.5-14.5); Segmented Neutrophils % 62.1 %; White Blood Count 6.2 K/mcL (4.3-11.1)
[2021-11-18] MEDS ORDERED: 0.9 % Sodium Chloride 1,000 ML IVC SCH (09:45)
[2021-11-18 09:52] LABS: Calcium 9.1 mg/dL (8.6-10.3); Potassium 5.1 mEq/L (3.5-5.1)
[2021-11-18] MEDS: QUEtiapine Fumarate 25 MG TABLET PO SCH (20:17)
[2021-11-18] MEDS: Sennosides/Docusate Sodium TABLET PO SCH (20:20)
[2021-11-18] MEDS: *HR* HYDROcodone/Acet 5/325 mg TABLET PO PRN (20:24)
[2021-11-19] MEDS: Levothyroxine 25 MCG TABLET PO SCH (04:39)
[2021-11-19] MEDS: *HR* Enoxaparin 40 MG/0.4 ML SYRINGE SQ SCH (04:40)
[2021-11-19 05:54] LABS: Basophils % 0.5 %; Eosinophils # 0.1 K/mcL (0.0-0.6); Eosinophils % 1.6 %; Hemoglobin 10.4 g/dL (11.5-15.4); Immature Granulocytes % 0.5 % (0-4); Lymphocytes # 1.9 K/mcL (0.6-4.6); Lymphocytes % 34.6 %; Mean Corpuscular HGB Conc 31.5 g/dL (31.6-35.5); Mean Corpuscular Hemoglobin 28.7 pg (28.0-33.3); Mean Corpuscular Volume 91.2 fL (83.0-100.0); Mean Platelet Volume 9.9 fL (9.4-12.4); Monocytes # 0.5 K/mcL (0.0-1.3); Monocytes % 9.1 %; Neutrophils # 2.9 K/mcL (1.6-8.9); Platelet Count 244 K/mcL (140-400); Red Blood Count 3.62 M/mcL (3.82-4.97); Red Cell Distribution Width 15.2 % (11.5-14.5); Segmented Neutrophils % 53.7 %; White Blood Count 5.5 K/mcL (4.3-11.1)
[2021-11-19 06:11] LABS: BUN/Creatinine Ratio 13 (6-26); Blood Urea Nitrogen 13 mg/dL (8-23); Calcium 8.9 mg/dL (8.6-10.3); Carbon Dioxide 36 mEq/L (23-29); Chloride 97 mEq/L (98-107); Glucose 85 mg/dL (70-105); Osmolality,Calculated 281 (280-300); Potassium 4.2 mEq/L (3.5-5.1); Sodium 136 mEq/L (136-145); eGFR For African Americans > 60 (> 60); eGFR For Non-African Americans 54 (> 60)
[2021-11-19] MEDS: Budesonide/Formoterol 160/4.5 1 PUFF INH IH SCH ×2 (07:38→20:08)
[2021-11-19] MEDS: Insulin LISPRO 300 UNITS/3 ML VIAL SUBQ SCH ×4 (07:59→20:01)
[2021-11-19] MEDS: Insulin DETEMIR 100 UNIT/ML X5UNITS SUBQ SCH ×2 (07:59→20:00)
[2021-11-19] MEDS: amLODIPine 5 MG TABLET PO SCH (08:08)
[2021-11-19] MEDS: calcitrioL 0.25 MCG CAPSULE PO SCH (08:08)
[2021-11-19] MEDS: Sennosides/Docusate Sodium TABLET PO SCH ×2 (08:08→19:57)
[2021-11-19] MEDS: lisinopriL 20 MG TABLET PO SCH (08:08)
[2021-11-19] MEDS: *HR* HYDROcodone/Acet 5/325 mg TABLET PO PRN ×2 (08:08→21:08)
[2021-11-19] MEDS: Furosemide 20 MG TABLET PO SCH (08:08)
[2021-11-19] MEDS: Cholecalciferol (D-3) 1,000 UNIT (25MCG) TABLET PO SCH (08:09)
[2021-11-19] MEDS: FLUoxetine 20 MG CAPSULE PO SCH (08:09)
[2021-11-19] MEDS: Gabapentin 100 MG CAPSULE PO SCH ×2 (08:09→20:00)
[2021-11-19] MEDS: Loratadine 10 MG TABLET PO SCH (08:09)
[2021-11-19] MEDS: Thiamine (B-1) 100 MG TABLET PO SCH (08:09)
[2021-11-19] MEDS: Cyanocobalamin (B-12) 1,000 MCG TABLET PO SCH (08:09)
[2021-11-19] MEDS: QUEtiapine Fumarate 25 MG TABLET PO SCH (20:00)
[2021-11-19] MEDS: Acetaminophen 325 MG TABLET PO PRN (20:00)
[2021-11-20] MEDS: Levothyroxine 25 MCG TABLET PO SCH (05:50)
[2021-11-20] MEDS: *HR* Enoxaparin 40 MG/0.4 ML SYRINGE SQ SCH (05:50)
[2021-11-20] MEDS: Insulin LISPRO 300 UNITS/3 ML VIAL SUBQ SCH ×2 (07:23→12:22)
[2021-11-20] MEDS: Acetaminophen 325 MG TABLET PO PRN (08:40)
[2021-11-20] MEDS: amLODIPine 5 MG TABLET PO SCH (08:41)
[2021-11-20] MEDS: Cyanocobalamin (B-12) 1,000 MCG TABLET PO SCH (08:42)
[2021-11-20] MEDS: calcitrioL 0.25 MCG CAPSULE PO SCH (08:42)
[2021-11-20] MEDS: FLUoxetine 20 MG CAPSULE PO SCH (08:42)
[2021-11-20] MEDS: Thiamine (B-1) 100 MG TABLET PO SCH (08:42)
[2021-11-20] MEDS: Cholecalciferol (D-3) 1,000 UNIT (25MCG) TABLET PO SCH (08:43)
[2021-11-20] MEDS: Loratadine 10 MG TABLET PO SCH (08:43)
[2021-11-20] MEDS: Sennosides/Docusate Sodium TABLET PO SCH (08:43)
[2021-11-20] MEDS: Gabapentin 100 MG CAPSULE PO SCH (08:43)
[2021-11-20] MEDS: lisinopriL 20 MG TABLET PO SCH (08:43)
[2021-11-20] MEDS: Insulin DETEMIR 100 UNIT/ML X5UNITS SUBQ SCH (08:44)
[2021-11-20] MEDS: Furosemide 20 MG TABLET PO SCH (08:44)
[2021-11-20] MEDS: Budesonide/Formoterol 160/4.5 1 PUFF INH IH SCH (10:06)
[2021-11-20 11:32] VITALS: RESP 15
[2021-11-20 19:35] VITALS: BP 158/72; PULSE 70; TEMP 97.6; O2SAT 93
== END 2021-11-20 14:20 | disposition home health service (06) | DRG 559 ==
LOC: INPGRE 13:51
PROVIDERS: ADMIT Family Medicine; ATTEND Family Medicine